=== PATIENT | female | born 1985 | race Caucasian/White ===

== ENCOUNTER → 2018-05-20 16:07 | Outpatient (CLI) | payer OTHER, MEDICAID, SELFPAY | PROVIDERS: Family Provider Family Medicine; PCP Family Medicine; Visit Provider Physician Assistant | DX: Z53.9 Procedure and treatment not carried out, unspecified reason (principal) ==

== ENCOUNTER → 2018-05-21 14:29 | Outpatient (CLI) | payer OTHER, MEDICAID, SELFPAY ==
[2018-05-21 15:52] LABS: Add Manual Diff / Slide Review NO; Basophils Percent Auto 0.4 % (0-2); Eosinophils Percent Auto 1.4 % (2-4); Hematocrit 42.5 % (36-46); Hemoglobin 14.2 g/dL (12.0-16.0); Lymphocytes Percent Auto 27.2 % (25-40); Mean Corpuscular HGB Conc 33.6 % (30-36); Mean Corpuscular Hemoglobin 30.3 PG (26-34); Mean Corpuscular Volume 90.4 fL (80-100); Neutrophils Absolute Auto 7900 /uL (3000-5900); Platelet Count 350 X10^3/uL (150-400); Red Cell Distribution Width 12.7 % (11.6-14.8); White Blood Cell Count 12.4 X10^3/uL (4.5-11.0)
[2018-05-21 16:30] LABS: Alanine Aminotransferase 22 IU/L (9-52); Albumin Globulin Ratio 1.4 (1.0-2.8); Alkaline Phosphatase 54 U/L (38-126); Aspartate Aminotransferase 16 IU/L (14-36); BUN Creatinine Ratio 14.3 (6-22); Bilirubin Total 0.9 mg/dL (0.2-1.3); Blood Urea Nitrogen 10 mg/dL (7-17); Calcium 9.2 mg/dL (8.4-10.2); Carbon Dioxide 28 mmol/L (22-32); Chloride 103 mmol/L (98-107); Estimated Glomerular Filt Rate > 60.0 mL/min (>60); Globulin 2.9 g/dL (1.7-4.1); Glucose 70 mg/dL (70-100); HEMOLYSIS < 15 (0-50); Potassium 4.8 mmol/L (3.4-5.1); Sodium 143 mmol/L (137-145); Total Protein 6.9 g/dL (6.3-8.2)
== END ==
PROVIDERS: PCP Family Medicine; Visit Provider Physician Assistant
DX: R14.0 Abdominal distension (gaseous) (principal); R10.9 Unspecified abdominal pain; K92.1 Melena
CPT/HCPCS: 36415; 80053; 85025; 87015; 87045; 87427; 87899

== ENCOUNTER 2018-06-21 16:15 | Emergency (ER) | payer OTHER, MEDICAID, SELFPAY ==
[2018-06-21 17:05] VITALS: BP 125/85; PULSE 85; RESP 16; TEMP 36.4; O2SAT 99
[2018-06-21 18:00] LABS: Amorphous Sediment Urine 1+; Bacteria Urine None Seen; Mucus Urine 1+ (Negative); RBC Urine 30-100/HPF (0-5/HPF); Squamous Epithelial Cell Urine 1-5 /HPF; WBC Urine 0-1/HPF (0-5/HPF)
[2018-06-21 18:01] LABS: Culture Indicated Urine Cult Not Indicated
--- NOTE | 2018-06-21 19:02 | ED.RECABL ---
HPI - Recheck/Abnormal Lab/Rx <ABDIRASHID Mccann - Last Filed: 06/21/18 23:02> General Chief Complaint: Recheck/Abnormal Lab/Rx Stated Complaint: HEMOROIDS,BLOOD IN STOOL Time Seen by Provider: 06/21/18 18:50 Source: patient Mode of arrival: ambulatory Limitations: no limitations History of Present Illness HPI narrative: Patient presents with complaints of being told she had a boat exceedingly high white blood cell count, rectal bleeding due to hemorrhoids, 2 periods this month, twinges in the muscles underneath her breast. She denies fevers, denies nausea vomiting or diarrhea. She complains of generalized lower abdominal pain related to her menses. She denies abnormal cough, denies shortness and denies chest pain. Related Data Previous Rx's Medication Instructions Recorded cyclobenzaprine 10 mg PO Q8HP PRN #20 tab 11/15/17 hydrocortisone [Proctosol HC] 1 applictn VT QD-BID PRN 7 Days 06/21/18 #30 gram Allergies Allergy/AdvReac Type Severity Reaction Status Date / Time venom-honey bee Allergy Intermediate CHEST Unverified 05/20/18 15:03 [bee venom (honey bee)] TIGHTNESS, SOB BEANS Allergy Unknown Uncoded 05/20/18 15:03 Review of Systems <RUDDY Mccann - Last Filed: 06/21/18 23:02> Review of Systems GENERAL: See HPI HEENT: Denies sinus pain, ear pain, sore throat, difficulty swallowing, dizziness. RESPIRATORY: Denies dyspnea, cough, wheezing, hemoptysis, sputum. CARDIOVASCULAR: Denies chest pain, palpitations, orthopnea, edema, GASTROINTESTINAL: Denies nausea, vomiting, abdominal pain, diarrhea, constipation, melena. : See HPI MUSCULOSKELETAL: denies weakness, joint pain, or bony pain SKIN: Denies rash, skin lesions, or other NEUROLOGIC: Denies weakness, headache, numbness, change in speech, confusion, seizures, incoordination. PSYCHIATRIC: No concerning psychosocial issues. 12 point review of systems is negative except for those stated above Exam <RUDDY Mccann - Last Filed: 06/21/18 23:02> Narrative Exam Narrative: GENERAL: Obese patient lying on stretcher. HEAD: Atraumatic. Normocephalic. No temporal or scalp tenderness. EYES: Pupils equal round and reactive. Extraocular motions intact. No scleral icterus. No injection or drainage. ENT: Nose without bleeding, purulent drainage or septal hematoma. Throat without erythema, tonsillar hypertrophy or exudate. Uvula midline. Airway patent. NECK: Trachea midline. No JVD or lymphadenopathy. Supple, nontender, no meningeal signs. CARDIOVASCULAR: Regular rate and rhythm without murmurs, gallops, or rubs. RESPIRATORY: Clear to auscultation. Breath sounds equal bilaterally. No wheezes, rales, or rhonchi. GASTROINTESTINAL: Abdomen soft, obese, nondistended. Active bowel sounds all 4 quadrants. No hepato-splenomegaly, or palpable masses. No guarding. Generalized pain to palpation entire abdomen. Nonrigid, no guarding. EXTREMITIES: No clubbing, cyanosis, or edema. No joint tenderness, effusion, or edema noted. BACK: Nontender without deformity or crepitance. No flank tenderness. NEURO: AOx3. SKIN: No rash or erythema. Rectal: External hemorrhoids visible. No internal hemorrhoids palpated. Initial Vital Signs Initial Vital Signs: Vital Signs Temperature 97.5 F L 06/21/18 17:05 Pulse Rate 85 06/21/18 17:05 Respiratory Rate 16 06/21/18 17:05 Blood Pressure 125/85 H 06/21/18 17:05 Pulse Oximetry 99 06/21/18 17:05 <Fina Crystal DO - Last Filed: 06/22/18 05:17> Initial Vital Signs Initial Vital Signs: Vital Signs Temperature 97.5 F L 06/21/18 17:05 Pulse Rate 85 06/21/18 17:05 Respiratory Rate 16 06/21/18 17:05 Blood Pressure 125/85 H 06/21/18 17:05 Pulse Oximetry 99 06/21/18 17:05 Procedures <ABDIRASHID Mccann - Last Filed: 06/21/18 23:02> Stool Hemoccult Procedural Steps Taken: stool placed in appropriate test area, developer placed on stool and control areas and controls appropriately positive and negative Hemoccult result: negative Course <ABDIRASHID Mccann - Last Filed: 06/21/18 23:02> Additional Information: Patient presented with various complaints including a high white blood cell count from labs last month. She also complains of hemorrhoids, several periods this month. She said that her physicians and they are ?exceedingly high.? However chart review illustrate snow labs since April, at which point her white blood cell count was slightly elevated. This week obtain repeat lab work, an EKG and a urine sample. A rectal exam was performed with Ale LLOYD as rehabilitator. Patient remained hemodynamically stable throughout her stay. I checked on her several times. She did not want to further workup her menstrual complaints in the emergency department, stating she would follow up with her primary care provider. Orders Ordered: ED Orders 06/21/18 17:15 Urine Microscopic Stat 06/21/18 19:01 EKG-12 Lead Stat 06/21/18 19:09 Complete Blood Count AUTO DIFF Stat Comprehensive Metabolic Panel Stat Lipase Stat Partial Thromboplastin Time Stat Prothrombin Time INR Stat Reevaluation(s) Reevaluation #1: Discussed wait for lab results. Time: 20:00 Reevaluation #2: Rectal performed with Ale sanchez rehabilitator. Heme-negative stool. Abdomen remains soft, no guarding. Patient requesting to go home. Time: 20:30 Vital Signs - 8 hr 06/21/18 17:05 06/21/18 20:00 Temperature 97.5 F L Pulse Rate 85 62 Respiratory Rate 16 17 Blood Pressure 125/85 H Blood Pressure [Right Arm] 107/74 Pulse Oximetry 99 100 <Fina Crystal DO - Last Filed: 06/22/18 05:17> Orders Ordered: ED Orders 06/21/18 17:15 Urine Microscopic Stat 06/21/18 19:01 EKG-12 Lead Stat 06/21/18 19:09 Complete Blood Count AUTO DIFF Stat Comprehensive Metabolic Panel Stat Lipase Stat Partial Thromboplastin Time Stat Prothrombin Time INR Stat Vital Signs - 8 hr 06/21/18 17:05 06/21/18 20:00 Temperature 97.5 F L Pulse Rate 85 62 Respiratory Rate 16 17 Blood Pressure 125/85 H Blood Pressure [Right Arm] 107/74 Pulse Oximetry 99 100 MDM - Recheck/Abnormal Lab/Rx <ABDIRASHID Mccann - Last Filed: 06/21/18 23:02> Lab Data Result diagrams: 06/21/18 19:09 06/21/18 19:09 Lab Results 07/06/21/18 06/21/18 Range/Units 17:15 19:09 19:09 WBC 11.6 H (4.5-11.0) X10^3/uL RBC 4.65 (4.0-5.2) X10^6/uL Hgb 14.1 (12.0-16.0) g/dL Hct 41.7 (36-46) % MCV 89.7 (80-100) fL MCH 30.3 (26-34) PG MCHC 33.8 (30-36) % RDW 12.5 (11.6-14.8) % Plt Count 338 (150-400) X10^3/uL Neut % (Auto) 53.1 (50-75) % Lymph % (Auto) 36.3 (25-40) % [place] % (Auto) 8.0 (3-14) % Eos % (Auto) 2.1 (2-4) % Baso % (Auto) 0.5 (0-2) % Neut # (Auto) 6200 H (0751-1391) /uL PT 11.9 (10.1-12.7) SECONDS INR 1.1 (0.9-1.3) APTT 30 (26.4-36.2) SECONDS Sodium (137-145) mmol/L Potassium (3.4-5.1) mmol/L Chloride (98-107) mmol/L Carbon Dioxide (22-32) mmol/L BUN (7-17) mg/dL Creatinine (0.52-1.04) mg/dL Estimated GFR (>60) mL/min BUN/Creatinine Ratio (6-22) Glucose (70-100) mg/dL Calcium (8.4-10.2) mg/dL Total Bilirubin (0.2-1.3) mg/dL AST (14-36) IU/L ALT (9-52) IU/L Alkaline Phosphatase (38-126) U/L Total Protein (6.3-8.2) g/dL Albumin (3.5-5.0) g/dL Globulin (1.7-4.1) g/dL Albumin/Globulin Ratio (1.0-2.8) Lipase (23-300) U/L Urine RBC 30-100/hpf H (0-5/HPF) Urine WBC 0-1/hpf (0-5/HPF) Ur Squamous Epith Cells 1-5 /hpf Amorphous Sediment 1+ Urine Bacteria None seen (None) Urine Mucus 1+ H (Negative) Ur Culture Indicated? Cult not indicated Micro UA Comment Not Reportable 06/21/18 Range/Units 19:09 WBC (4.5-11.0) X10^3/uL RBC (4.0-5.2) X10^6/uL Hgb (12.0-16.0) g/dL Hct (36-46) % MCV (80-100) fL MCH (26-34) PG MCHC (30-36) % RDW (11.6-14.8) % Plt Count (150-400) X10^3/uL Neut % (Auto) (50-75) % Lymph % (Auto) (25-40) % [place] % (Auto) (3-14) % Eos % (Auto) (2-4) % Baso % (Auto) (0-2) % Neut # (Auto) (0251-3292) /uL PT (10.1-12.7) SECONDS INR (0.9-1.3) APTT (26.4-36.2) SECONDS Sodium 137 (137-145) mmol/L Potassium 4.1 (3.4-5.1) mmol/L Chloride 102 (98-107) mmol/L Carbon Dioxide 28 (22-32) mmol/L BUN 7 (7-17) mg/dL Creatinine 0.70 (0.52-1.04) mg/dL Estimated GFR > 60.0 (>60) mL/min BUN/Creatinine Ratio 10.0 (6-22) Glucose 87 (70-100) mg/dL Calcium 9.1 (8.4-10.2) mg/dL Total Bilirubin 0.8 (0.2-1.3) mg/dL AST 18 (14-36) IU/L ALT 24 (9-52) IU/L Alkaline Phosphatase 56 (38-126) U/L Total Protein 6.7 (6.3-8.2) g/dL Albumin 4.0 (3.5-5.0) g/dL Globulin 2.7 (1.7-4.1) g/dL Albumin/Globulin Ratio 1.5 (1.0-2.8) Lipase 127 (23-300) U/L Urine RBC (0-5/HPF) Urine WBC (0-5/HPF) Ur Squamous Epith Cells Amorphous Sediment Urine Bacteria (None) Urine Mucus (Negative) Ur Culture Indicated? Micro UA Comment MDM Narrative Medical decision making narrative: Patient presents with chief complaint of a high white count and hemorrhoids. Lab work was taken and her white count was 11.6. A rectal exam was completed and she was noted to have hemorrhoids but also heme-negative stool. Patient wanted to go home. Her labs were stable with stable hemoglobin hematocrit and she has stable vital signs the emergency department. Thus I gave her prescription for Proctosol for her hemorrhoid. I discussed high fiber diet and pushing fluids. Discussed follow-up with primary care if worsening or no improvement. Patient denied any imaging at this point in time; Given that she is hemodynamically stable I believe that this is an appropriate decision. Discussed at length follow-up precautions and return precautions to the emergency department. <Fina Crystal, DO - Last Filed: 06/22/18 05:17> Lab Data Lab Results 06/21/18 06/21/18 06/21/18 Range/Units 17:15 19:09 19:09 WBC 11.6 H (4.5-11.0) X10^3/uL RBC 4.65 (4.0-5.2) X10^6/uL Hgb 14.1 (12.0-16.0) g/dL Hct 41.7 (36-46) % MCV 89.7 (80-100) fL MCH 30.3 (26-34) PG MCHC 33.8 (30-36) % RDW 12.5 (11.6-14.8) % Plt Count 338 (150-400) X10^3/uL Neut % (Auto) 53.1 (50-75) % Lymph % (Auto) 36.3 (25-40) % [place] % (Auto) 8.0 (3-14) % Eos % (Auto) 2.1 (2-4) % Baso % (Auto) 0.5 (0-2) % Neut # (Auto) 6200 H (4488-5808) /uL PT 11.9 (10.1-12.7) SECONDS INR 1.1 (0.9-1.3) APTT 30 (26.4-36.2) SECONDS Sodium (137-145) mmol/L Potassium (3.4-5.1) mmol/L Chloride (98-107) mmol/L Carbon Dioxide (22-32) mmol/L BUN (7-17) mg/dL Creatinine (0.52-1.04) mg/dL Estimated GFR (>60) mL/min BUN/Creatinine Ratio (6-22) Glucose (70-100) mg/dL Calcium (8.4-10.2) mg/dL Total Bilirubin (0.2-1.3) mg/dL AST (14-36) IU/L ALT (9-52) IU/L Alkaline Phosphatase (38-126) U/L Total Protein (6.3-8.2) g/dL Albumin (3.5-5.0) g/dL Globulin (1.7-4.1) g/dL Albumin/Globulin Ratio (1.0-2.8) Lipase (23-300) U/L Urine RBC 30-100/hpf H (0-5/HPF) Urine WBC 0-1/hpf (0-5/HPF) Ur Squamous Epith Cells 1-5 /hpf Amorphous Sediment 1+ Urine Bacteria None seen (None) Urine Mucus 1+ H (Negative) Ur Culture Indicated? Cult not indicated Micro UA Comment Not Reportable 06/21/18 Range/Units 19:09 WBC (4.5-11.0) X10^3/uL RBC (4.0-5.2) X10^6/uL Hgb (12.0-16.0) g/dL Hct (36-46) % MCV (80-100) fL MCH (26-34) PG MCHC (30-36) % RDW (11.6-14.8) % Plt Count (150-400) X10^3/uL Neut % (Auto) (50-75) % Lymph % (Auto) (25-40) % [place] % (Auto) (3-14) % Eos % (Auto) (2-4) % Baso % (Auto) (0-2) % Neut # (Auto) (0228-1949) /uL PT (10.1-12.7) SECONDS INR (0.9-1.3) APTT (26.4-36.2) SECONDS Sodium 137 (137-145) mmol/L Potassium 4.1 (3.4-5.1) mmol/L Chloride 102 (98-107) mmol/L Carbon Dioxide 28 (22-32) mmol/L BUN 7 (7-17) mg/dL Creatinine 0.70 (0.52-1.04) mg/dL Estimated GFR > 60.0 (>60) mL/min BUN/Creatinine Ratio 10.0 (6-22) Glucose 87 (70-100) mg/dL Calcium 9.1 (8.4-10.2) mg/dL Total Bilirubin 0.8 (0.2-1.3) mg/dL AST 18 (14-36) IU/L ALT 24 (9-52) IU/L Alkaline Phosphatase 56 (38-126) U/L Total Protein 6.7 (6.3-8.2) g/dL Albumin 4.0 (3.5-5.0) g/dL Globulin 2.7 (1.7-4.1) g/dL Albumin/Globulin Ratio 1.5 (1.0-2.8) Lipase 127 (23-300) U/L Urine RBC (0-5/HPF) Urine WBC (0-5/HPF) Ur Squamous Epith Cells Amorphous Sediment Urine Bacteria (None) Urine Mucus (Negative) Ur Culture Indicated? Micro UA Comment Discharge Plan Departure Patient Disposition: Home, Self-Care Clinical Impression: Acute hemorrhoid Discharge Date/Time: 06/21/18 21:00 Interventions: ED Discharge Assessment Last Done: 06/21/18 21:00 Instructions: Hemorrhoids (Alternative Therapy), DI for Hemorrhoids Activity Restrictions/Additional Instructions: Please follow-up with your primary care provider. Your white blood cell count is not markedly elevated. Your urine dip came back clean. I am starting on a medication for your hemorrhoids. Please follow-up with her primary care provider if new or worsening symptoms. I encourage you to drink lots of fluids and eat a high-fiber diet. Please be evaluated in the emergency department if you have any chest pain, shortness of breath, severe fever or sudden onset of abdominal pain. Prescriptions: New hydrocortisone [Proctosol HC] 2.5 % cream with perineal applicator 1 applictn VT QD-BID PRN (Reason: hemorrhoids) 7 Days Qty: 30 RF: 0 No Action cyclobenzaprine 10 MG tablet 10 mg PO Q8HP PRNQty: 20 RF: 0 Referrals: Priscila Breaux MD [Primary Care Provider] - <Fina Crystal DO - Last Filed: 06/22/18 05:17> Cosign ED Attending Missy Attestation: I was immediately available in the department for consultation. Documentation has been reviewed. I agree with assessment and plan.
[2018-06-21 19:31] LABS: Add Manual Diff / Slide Review NO; Basophils Percent Auto 0.5 % (0-2); Eosinophils Percent Auto 2.1 % (2-4); Hematocrit 41.7 % (36-46); Hemoglobin 14.1 g/dL (12.0-16.0); Lymphocytes Percent Auto 36.3 % (25-40); Mean Corpuscular HGB Conc 33.8 % (30-36); Mean Corpuscular Hemoglobin 30.3 PG (26-34); Mean Corpuscular Volume 89.7 fL (80-100); Neutrophils Absolute Auto 6200 /uL (3000-5900); Neutrophils Percent Auto 53.1 % (50-75); Platelet Count 338 X10^3/uL (150-400); Red Blood Cell Count 4.65 X10^6/uL (4.0-5.2); Red Cell Distribution Width 12.5 % (11.6-14.8); White Blood Cell Count 11.6 X10^3/uL (4.5-11.0)
[2018-06-21 19:39] LABS: INR 1.1 (0.9-1.3); Prothrombin Time 11.9 SECONDS (10.1-12.7)
[2018-06-21 19:41] LABS: PTT Partial Thromboplastin Tim 30 SECONDS (26.4-36.2)
[2018-06-21 19:42] LABS: Alanine Aminotransferase 24 IU/L (9-52); Albumin Globulin Ratio 1.5 (1.0-2.8); Alkaline Phosphatase 56 U/L (38-126); Aspartate Aminotransferase 18 IU/L (14-36); Bilirubin Total 0.8 mg/dL (0.2-1.3); Blood Urea Nitrogen 7 mg/dL (7-17); Calcium 9.1 mg/dL (8.4-10.2); Carbon Dioxide 28 mmol/L (22-32); Chloride 102 mmol/L (98-107); Estimated Glomerular Filt Rate > 60.0 mL/min (>60); Globulin 2.7 g/dL (1.7-4.1); Glucose 87 mg/dL (70-100); HEMOLYSIS < 15 (0-50); Lipase 127 U/L (23-300); Potassium 4.1 mmol/L (3.4-5.1); Sodium 137 mmol/L (137-145); Total Protein 6.7 g/dL (6.3-8.2)
[2018-06-21 20:00] VITALS: BP 107/74; PULSE 62; RESP 17; O2SAT 100
--- NOTE | 2018-06-21 20:54 | ED_ITS ---
HPI - Recheck/Abnormal Lab/Rx <ABDIRASHID Mccann - Last Filed: 06/21/18 23:02> General Chief Complaint: Recheck/Abnormal Lab/Rx Stated Complaint: HEMOROIDS,BLOOD IN STOOL Time Seen by Provider: 06/21/18 18:50 Source: patient Mode of arrival: ambulatory Limitations: no limitations History of Present Illness HPI narrative: Patient presents with complaints of being told she had a boat exceedingly high white blood cell count, rectal bleeding due to hemorrhoids, 2 periods this month, twinges in the muscles underneath her breast. She denies fevers, denies nausea vomiting or diarrhea. She complains of generalized lower abdominal pain related to her menses. She denies abnormal cough, denies shortness and denies chest pain. Related Data Previous Rx's Medication Instructions Recorded cyclobenzaprine 10 mg PO Q8HP PRN #20 tab 11/15/17 hydrocortisone [Proctosol HC] 1 applictn MT QD-BID PRN 7 Days 06/21/18 #30 gram Allergies Allergy/AdvReac Type Severity Reaction Status Date / Time venom-honey bee Allergy Intermediate CHEST Unverified 05/20/18 15:03 [bee venom (honey bee)] TIGHTNESS, SOB BEANS Allergy Unknown Uncoded 05/20/18 15:03 Review of Systems <RUDDY Mccann - Last Filed: 06/21/18 23:02> Review of Systems GENERAL: See HPI HEENT: Denies sinus pain, ear pain, sore throat, difficulty swallowing, dizziness. RESPIRATORY: Denies dyspnea, cough, wheezing, hemoptysis, sputum. CARDIOVASCULAR: Denies chest pain, palpitations, orthopnea, edema, GASTROINTESTINAL: Denies nausea, vomiting, abdominal pain, diarrhea, constipation, melena. : See HPI MUSCULOSKELETAL: denies weakness, joint pain, or bony pain SKIN: Denies rash, skin lesions, or other NEUROLOGIC: Denies weakness, headache, numbness, change in speech, confusion, seizures, incoordination. PSYCHIATRIC: No concerning psychosocial issues. 12 point review of systems is negative except for those stated above Exam <RUDDY Mccann - Last Filed: 06/21/18 23:02> Narrative Exam Narrative: GENERAL: Obese patient lying on stretcher. HEAD: Atraumatic. Normocephalic. No temporal or scalp tenderness. EYES: Pupils equal round and reactive. Extraocular motions intact. No scleral icterus. No injection or drainage. ENT: Nose without bleeding, purulent drainage or septal hematoma. Throat without erythema, tonsillar hypertrophy or exudate. Uvula midline. Airway patent. NECK: Trachea midline. No JVD or lymphadenopathy. Supple, nontender, no meningeal signs. CARDIOVASCULAR: Regular rate and rhythm without murmurs, gallops, or rubs. RESPIRATORY: Clear to auscultation. Breath sounds equal bilaterally. No wheezes , rales, or rhonchi. GASTROINTESTINAL: Abdomen soft, obese, nondistended. Active bowel sounds all 4 quadrants. No hepato-splenomegaly, or palpable masses. No guarding. Generalized pain to palpation entire abdomen. Nonrigid, no guarding. EXTREMITIES: No clubbing, cyanosis, or edema. No joint tenderness, effusion, or edema noted. BACK: Nontender without deformity or crepitance. No flank tenderness. NEURO: AOx3. SKIN: No rash or erythema. Rectal: External hemorrhoids visible. No internal hemorrhoids palpated. Initial Vital Signs Initial Vital Signs: Vital Signs Temperature 97.5 F L 06/21/18 17:05 Pulse Rate 85 06/21/18 17:05 Respiratory Rate 16 06/21/18 17:05 Blood Pressure 125/85 H 06/21/18 17:05 Pulse Oximetry 99 06/21/18 17:05 <Fina Crystal DO - Last Filed: 06/22/18 05:17> Initial Vital Signs Initial Vital Signs: Vital Signs Temperature 97.5 F L 06/21/18 17:05 Pulse Rate 85 06/21/18 17:05 Respiratory Rate 16 06/21/18 17:05 Blood Pressure 125/85 H 06/21/18 17:05 Pulse Oximetry 99 06/21/18 17:05 Procedures <ABDIRASHID Mccann - Last Filed: 06/21/18 23:02> Stool Hemoccult Procedural Steps Taken: stool placed in appropriate test area, developer placed on stool and control areas and controls appropriately positive and negative Hemoccult result: negative Course <ABDIRASHID Mccann - Last Filed: 06/21/18 23:02> Additional Information: Patient presented with various complaints including a high white blood cell count from labs last month. She also complains of hemorrhoids, several periods this month. She said that her physicians and they are ?exceedingly high.? However chart review illustrate snow labs since April, at which point her white blood cell count was slightly elevated. This week obtain repeat lab work, an EKG and a urine sample. A rectal exam was performed with Ale LLOYD as transmission worker. Patient remained hemodynamically stable throughout her stay. I checked on her several times. She did not want to further workup her menstrual complaints in the emergency department, stating she would follow up with her primary care provider. Orders Ordered: ED Orders 06/21/18 17:15 Urine Microscopic Stat 06/21/18 19:01 EKG-12 Lead Stat 06/21/18 19:09 Complete Blood Count AUTO DIFF Stat Comprehensive Metabolic Panel Stat Lipase Stat Partial Thromboplastin Time Stat Prothrombin Time INR Stat Reevaluation(s) Reevaluation #1: Discussed wait for lab results. Time: 20:00 Reevaluation #2: Rectal performed with Ale sanchez transmission worker. Heme-negative stool. Abdomen remains soft, no guarding. Patient requesting to go home. Time: 20:30 Vital Signs - 8 hr 06/21/18 17:05 06/21/18 20:00 Temperature 97.5 F L Pulse Rate 85 62 Respiratory Rate 16 17 Blood Pressure 125/85 H Blood Pressure [Right Arm] 107/74 Pulse Oximetry 99 100 <Fina Crystal DO - Last Filed: 06/22/18 05:17> Orders Ordered: ED Orders 06/21/18 17:15 Urine Microscopic Stat 06/21/18 19:01 EKG-12 Lead Stat 06/21/18 19:09 Complete Blood Count AUTO DIFF Stat Comprehensive Metabolic Panel Stat Lipase Stat Partial Thromboplastin Time Stat Prothrombin Time INR Stat Vital Signs - 8 hr 06/21/18 17:05 06/21/18 20:00 Temperature 97.5 F L Pulse Rate 85 62 Respiratory Rate 16 17 Blood Pressure 125/85 H Blood Pressure [Right Arm] 107/74 Pulse Oximetry 99 100 MDM - Recheck/Abnormal Lab/Rx <ABDIRASHID Mccann - Last Filed: 06/21/18 23:02> Lab Data Result diagrams: 06/21/18 19:09 06/21/18 19:09 Lab Results 07/06/21/18 06/21/18 Range/Units 17:15 19:09 19:09 WBC 11.6 H (4.5-11.0) X10^3/uL RBC 4.65 (4.0-5.2) X10^6/uL Hgb 14.1 (12.0-16.0) g/dL Hct 41.7 (36-46) % MCV 89.7 (80-100) fL MCH 30.3 (26-34) PG MCHC 33.8 (30-36) % RDW 12.5 (11.6-14.8) % Plt Count 338 (150-400) X10^3/uL Neut % (Auto) 53.1 (50-75) % Lymph % (Auto) 36.3 (25-40) % [place] % (Auto) 8.0 (3-14) % Eos % (Auto) 2.1 (2-4) % Baso % (Auto) 0.5 (0-2) % Neut # (Auto) 6200 H (3851-2869) /uL PT 11.9 (10.1-12.7) SECONDS INR 1.1 (0.9-1.3) APTT 30 (26.4-36.2) SECONDS Sodium (137-145) mmol/L Potassium (3.4-5.1) mmol/L Chloride (98-107) mmol/L Carbon Dioxide (22-32) mmol/L BUN (7-17) mg/dL Creatinine (0.52-1.04) mg/dL Estimated GFR (>60) mL/min BUN/Creatinine Ratio (6-22) Glucose (70-100) mg/dL Calcium (8.4-10.2) mg/dL Total Bilirubin (0.2-1.3) mg/dL AST (14-36) IU/L ALT (9-52) IU/L Alkaline Phosphatase (38-126) U/L Total Protein (6.3-8.2) g/dL Albumin (3.5-5.0) g/dL Globulin (1.7-4.1) g/dL Albumin/Globulin Ratio (1.0-2.8) Lipase (23-300) U/L Urine RBC 30-100/hpf H (0-5/HPF) Urine WBC 0-1/hpf (0-5/HPF) Ur Squamous Epith Cells 1-5 /hpf Amorphous Sediment 1+ Urine Bacteria None seen (None) Urine Mucus 1+ H (Negative) Ur Culture Indicated? Cult not indicated Micro UA Comment Not Reportable 06/21/18 Range/Units 19:09 WBC (4.5-11.0) X10^3/uL RBC (4.0-5.2) X10^6/uL Hgb (12.0-16.0) g/dL Hct (36-46) % MCV (80-100) fL MCH (26-34) PG MCHC (30-36) % RDW (11.6-14.8) % Plt Count (150-400) X10^3/uL Neut % (Auto) (50-75) % Lymph % (Auto) (25-40) % [place] % (Auto) (3-14) % Eos % (Auto) (2-4) % Baso % (Auto) (0-2) % Neut # (Auto) (8168-0607) /uL PT (10.1-12.7) SECONDS INR (0.9-1.3) APTT (26.4-36.2) SECONDS Sodium 137 (137-145) mmol/L Potassium 4.1 (3.4-5.1) mmol/L Chloride 102 (98-107) mmol/L Carbon Dioxide 28 (22-32) mmol/L BUN 7 (7-17) mg/dL Creatinine 0.70 (0.52-1.04) mg/dL Estimated GFR > 60.0 (>60) mL/min BUN/Creatinine Ratio 10.0 (6-22) Glucose 87 (70-100) mg/dL Calcium 9.1 (8.4-10.2) mg/dL Total Bilirubin 0.8 (0.2-1.3) mg/dL AST 18 (14-36) IU/L ALT 24 (9-52) IU/L Alkaline Phosphatase 56 (38-126) U/L Total Protein 6.7 (6.3-8.2) g/dL Albumin 4.0 (3.5-5.0) g/dL Globulin 2.7 (1.7-4.1) g/dL Albumin/Globulin Ratio 1.5 (1.0-2.8) Lipase 127 (23-300) U/L Urine RBC (0-5/HPF) Urine WBC (0-5/HPF) Ur Squamous Epith Cells Amorphous Sediment Urine Bacteria (None) Urine Mucus (Negative) Ur Culture Indicated? Micro UA Comment MDM Narrative Medical decision making narrative: Patient presents with chief complaint of a high white count and hemorrhoids. Lab work was taken and her white count was 11.6. A rectal exam was completed and she was noted to have hemorrhoids but also heme-negative stool. Patient wanted to go home. Her labs were stable with stable hemoglobin hematocrit and she has stable vital signs the emergency department. Thus I gave her prescription for Proctosol for her hemorrhoid. I discussed high fiber diet and pushing fluids. Discussed follow-up with primary care if worsening or no improvement. Patient denied any imaging at this point in time; Given that she is hemodynamically stable I believe that this is an appropriate decision. Discussed at length follow-up precautions and return precautions to the emergency department. <Fina Crystal, DO - Last Filed: 06/22/18 05:17> Lab Data Lab Results 06/21/18 06/21/18 06/21/18 Range/Units 17:15 19:09 19:09 WBC 11.6 H (4.5-11.0) X10^3/uL RBC 4.65 (4.0-5.2) X10^6/uL Hgb 14.1 (12.0-16.0) g/dL Hct 41.7 (36-46) % MCV 89.7 (80-100) fL MCH 30.3 (26-34) PG MCHC 33.8 (30-36) % RDW 12.5 (11.6-14.8) % Plt Count 338 (150-400) X10^3/uL Neut % (Auto) 53.1 (50-75) % Lymph % (Auto) 36.3 (25-40) % [place] % (Auto) 8.0 (3-14) % Eos % (Auto) 2.1 (2-4) % Baso % (Auto) 0.5 (0-2) % Neut # (Auto) 6200 H (4238-8496) /uL PT 11.9 (10.1-12.7) SECONDS INR 1.1 (0.9-1.3) APTT 30 (26.4-36.2) SECONDS Sodium (137-145) mmol/L Potassium (3.4-5.1) mmol/L Chloride (98-107) mmol/L Carbon Dioxide (22-32) mmol/L BUN (7-17) mg/dL Creatinine (0.52-1.04) mg/dL Estimated GFR (>60) mL/min BUN/Creatinine Ratio (6-22) Glucose (70-100) mg/dL Calcium (8.4-10.2) mg/dL Total Bilirubin (0.2-1.3) mg/dL AST (14-36) IU/L ALT (9-52) IU/L Alkaline Phosphatase (38-126) U/L Total Protein (6.3-8.2) g/dL Albumin (3.5-5.0) g/dL Globulin (1.7-4.1) g/dL Albumin/Globulin Ratio (1.0-2.8) Lipase (23-300) U/L Urine RBC 30-100/hpf H (0-5/HPF) Urine WBC 0-1/hpf (0-5/HPF) Ur Squamous Epith Cells 1-5 /hpf Amorphous Sediment 1+ Urine Bacteria None seen (None) Urine Mucus 1+ H (Negative) Ur Culture Indicated? Cult not indicated Micro UA Comment Not Reportable 06/21/18 Range/Units 19:09 WBC (4.5-11.0) X10^3/uL RBC (4.0-5.2) X10^6/uL Hgb (12.0-16.0) g/dL Hct (36-46) % MCV (80-100) fL MCH (26-34) PG MCHC (30-36) % RDW (11.6-14.8) % Plt Count (150-400) X10^3/uL Neut % (Auto) (50-75) % Lymph % (Auto) (25-40) % [place] % (Auto) (3-14) % Eos % (Auto) (2-4) % Baso % (Auto) (0-2) % Neut # (Auto) (8306-9384) /uL PT (10.1-12.7) SECONDS INR (0.9-1.3) APTT (26.4-36.2) SECONDS Sodium 137 (137-145) mmol/L Potassium 4.1 (3.4-5.1) mmol/L Chloride 102 (98-107) mmol/L Carbon Dioxide 28 (22-32) mmol/L BUN 7 (7-17) mg/dL Creatinine 0.70 (0.52-1.04) mg/dL Estimated GFR > 60.0 (>60) mL/min BUN/Creatinine Ratio 10.0 (6-22) Glucose 87 (70-100) mg/dL Calcium 9.1 (8.4-10.2) mg/dL Total Bilirubin 0.8 (0.2-1.3) mg/dL AST 18 (14-36) IU/L ALT 24 (9-52) IU/L Alkaline Phosphatase 56 (38-126) U/L Total Protein 6.7 (6.3-8.2) g/dL Albumin 4.0 (3.5-5.0) g/dL Globulin 2.7 (1.7-4.1) g/dL Albumin/Globulin Ratio 1.5 (1.0-2.8) Lipase 127 (23-300) U/L Urine RBC (0-5/HPF) Urine WBC (0-5/HPF) Ur Squamous Epith Cells Amorphous Sediment Urine Bacteria (None) Urine Mucus (Negative) Ur Culture Indicated? Micro UA Comment Discharge Plan Departure Patient Disposition: Home, Self-Care Clinical Impression: Acute hemorrhoid Discharge Date/Time: 06/21/18 21:00 Interventions: ED Discharge Assessment Last Done: 06/21/18 21:00 Instructions: Hemorrhoids (Alternative Therapy), DI for Hemorrhoids Activity Restrictions/Additional Instructions: Please follow-up with your primary care provider. Your white blood cell count is not markedly elevated. Your urine dip came back clean. I am starting on a medication for your hemorrhoids. Please follow-up with her primary care provider if new or worsening symptoms. I encourage you to drink lots of fluids and eat a high-fiber diet. Please be evaluated in the emergency department if you have any chest pain, shortness of breath, severe fever or sudden onset of abdominal pain. Prescriptions: New hydrocortisone [Proctosol HC] 2.5 % cream with perineal applicator 1 applictn MT QD-BID PRN (Reason: hemorrhoids) 7 Days Qty: 30 RF: 0 No Action cyclobenzaprine 10 MG tablet 10 mg PO Q8HP PRNQty: 20 RF: 0 Referrals: Priscila Breaux MD [Primary Care Provider] - <Fina Crystal DO - Last Filed: 06/22/18 05:17> Cosign ED Attending Missy Attestation: I was immediately available in the department for consultation. Documentation has been reviewed. I agree with assessment and plan.
--- NOTE | 2018-06-21 21:20 | PC.NURSE ---
Pt states was told to come to ER by primary provider Saeid for elevated WBC lab two weeks ago which she missed her followup appt with her primary provider and states she has developed a painful external hemorrhoid.
== END 2018-06-21 21:00 | disposition home or self-care (01) ==
PROVIDERS: Emergency Medicine; Emergency Provider Nurse Practitioner Family; Family Provider Family Medicine; PCP Family Medicine
DX: K64.9 Unspecified hemorrhoids (principal)
CPT/HCPCS: 36591; 80053; 81003; 81015; 81025; 83690; 85025; 85610; 85730; 93005; 99283; 99284